=== PATIENT | male | born 1960 | race Two or more races ===

== ENCOUNTER → 2018-12-11 10:16 | Outpatient (CLI) | payer BC ==
[2014-06-17 14:10] VITALS: BMI 29.9
[~2018-12-11 10:16] MED LIST: AMRIX15 M1 PO; HYDROCODONE-APA1 TAB PO; LISINOPRIL5 MG PO; MOBIC7.5 MG PO; OXYCONTIN15 MG PO; PROTONIX40 MG PO
== END | disposition home or self-care (01) ==
LOC: D.LAB 10:16
DX: K70.9 Alcoholic liver disease, unspecified (principal)